=== PATIENT | female | born 1985 | race Two or more races ===

== ENCOUNTER 2022-11-02 15:32 | Inpatient (IN) | payer OTHER ==
[~2022-11-02] VITALS: Ht 167.6 cm; Wt 98.0 kg
[2022-11-03] MEDS ORDERED: MACROBID 100 M100 MG PO (07:46)
== END 2022-11-03 10:27 | disposition home or self-care (01) | DRG 833 ==
LOC: LDR 15:32 → OB/GYN 18:25
PROVIDERS: ADMIT Obstetrics & Gynecology Maternal & Fetal Medicine; ATTEND Obstetrics & Gynecology Maternal & Fetal Medicine
PROC: 0T9B70Z Drainage of Bladder with Drainage Device, Via Natural or Artificial Opening (ICD-10-PCS; principal; 2022-11-02)
PROC: 4A1HXCZ Monitoring of Products of Conception, Cardiac Rate, External Approach (ICD-10-PCS; 2022-11-02)
DX: O26.891 Other specified pregnancy related conditions, first trimester (principal); R33.8 Other retention of urine; Z3A.09 9 weeks gestation of pregnancy; Z20.822 Contact with and (suspected) exposure to COVID-19